=== PATIENT | female | born 1985 | race African-American/Black ===

== ENCOUNTER 2017-03-08 06:27 | Emergency (ER) | payer OTHER ==
[~2017-03-08] VITALS: Ht 165.1 cm; Wt 127.0 kg
[~2017-03-08 06:27] MED LIST: AMLO-145 PO; AMOX1TAB10 PO; CLON-379 PO; HYDR-3671 PO; LINA5TAB PO; LIRA0.6P SQ; LISI20TA11 PO; LISI40TA9 PO; METO-429 PO
[2017-03-08 06:33] VITALS: Ht 165.1 cm; Wt 127.0 kg
[2017-03-08] MEDS ORDERED: TETRACAINE 0.5% 4 ML OPH RIGHT EYE ONE (07:30)
[2017-03-08] MEDS ORDERED: FLUORESCEIN STRIP RIGHT EYE ONE (07:30)
[2017-03-08] MEDS ORDERED: GENT5DRO28 RIGHT EYE (07:37)
--- NOTE | 2017-03-08 07:42 | ERD ---
ER Documentation Chief Complaint Date/Time DATE: 03/08/17 TIME: 07:39 Chief Complaint rt eye redness and itching since yesterday HPI 31-year-old female presents to the emergency department complaining of right eye pain. Patient states she accidentally smeared mascara into her right eye yesterday. Since then, she has been having right eye blurriness and pain. She denies any fevers, chills. She does not wear contact lenses. She denies trauma. ROS All systems reviewed and are negative except as per history of present illness. Medications Home Meds Active Scripts Gentamicin Sulfate* (Gentamicin Sulfate* Ophth) 0.3% - 5 Ml Drops, 1 DROP RIGHT EYE Q4 for 5 Days, EA Prov:BOBBY MURILLO 03/08/17 Amoxicillin/Potassium Clav (Amox-Clav 875-125 mg Tablet) 875-125 mg Tab, 1 TAB PO BID for 10 Days, TAB Prov:REGERICK SANCHEZ 07/27/16 Lisinopril* (Lisinopril*) 20 Mg Tablet, 20 MG PO DAILY for 30 Days, TAB Prov:REGIDOERICK Santana 07/27/16 Amlodipine Besylate* (Amlodipine Besylate*) 5 Mg Tablet, 5 MG PO BID for 30 Days , TAB Prov:REGERICK SANCHEZ 07/27/16 Metoprolol Tartrate* (Lopressor*) 50 Mg Tab, 50 MG PO BID for 30 Days, TAB Prov:REGERIKC SANCHEZ 07/27/16 Linagliptin (TRADJENTA) 5 Mg Tablet, 5 MG PO DAILY for 30 Days, TAB Prov:REGERICK SANCHEZ 07/27/16 Hydralazine Hcl* (Hydralazine Hcl*) 25 Mg Tab, 25 MG PO TID for 30 Days, TAB Prov:REGERICK SANCHEZ 07/27/16 Clonidine Hcl* (Clonidine Hcl*) 0.1 Mg Tab, 0.1 MG PO BID for 30 Days, TAB Prov:ERICK PALACIOS 07/27/16 Reported Medications Lisinopril* (Lisinopril*) 40 Mg Tablet, 40 MG PO DAILY, #30 TAB 07/24/16 Liraglutide (Victoza 2-Sukhwinder) 0.6 Mg/0.1 Ml Pen.injctr, 1.2 MG SQ DAILY, SYR 07/22/16 Allergies Allergies: Coded Allergies: bupropion (Verified Allergy, Severe, 07/22/16) PMhx/Soc History of Surgery: Yes (adinoids and tonsils) Anesthesia Reaction: No Hx Neurological Disorder: No Hx Respiratory Disorders: No Hx Psychiatric Problems: No Hx Miscellaneous Medical Probl: Yes (Dx:POD 2 for I&D of Odontogenic L neck abcess, s/p extubation) Hx Alcohol Use: No Hx Substance Use: No Hx Tobacco Use: No FmHx Noncontributory for chief complaint Physical Exam Vitals Vital Signs Date Time Temp Pulse Resp B/P Pulse Ox O2 Delivery O2 Flow Rate FiO2 03/08/17 06:33 98.4 100 18 149/85 98 Physical Exam General: Well-developed well-nourished in no distress HEENT: No evidence of trauma. No facial inflammation or infection. EYE: Left eye is normal with normal visual acuity, right eye is slightly blurry when counting fingers. Extraocular movements are intact, significant conjunctival inflammation is noted. Fluorescein examination demonstrates evidence of significant uptake about the cornea. There is no ulceration. There is no foreign body on slit lamp exam. Anterior chamber is quiet and deep. Extraocular movements are intact without limitation there is no diplopia. Results 24 hrs Current Medications Medications (Trade) Dose Ordered Sig/Man Route PRN Reason Start Time Stop Time Status Last Admin Dose Admin Tetracaine HCl (Tetracaine 0.5% Steri-Unit Estelita) 1 drop ONCE ONCE RIGHT EYE 03/08/17 07:30 03/08/17 07:31 DC Fluorescein Sodium (Bixvd-T-Qnmvi) 1 strip ONCE ONCE RIGHT EYE 03/08/17 07:30 03/08/17 07:31 DC Gentamicin Sulfate (Gentamicin 0.3% Oph Oint) 1 applic ONCE ONCE RIGHT EYE 03/08/17 08:00 03/08/17 08:01 Procedures/MDM Patient was taken to a room, seen and examined. After tetracaine instilled into the eye, she had complete resolution of her discomfort. Fluorescein examination was then completed. The patient's eye was patched with gentamicin eyedrops. Medical decision makin-year-old diabetic presents to the emergency department with right eye pain. Patient demonstrates no evidence of significant vision threatening concerns, but has a significant corneal injury likely from the mascara. At this time, I have treated antibiotics and I suspect that she will be healing. I have informed her of the need for close 24 hour follow-up either here in the emergency department or with her eye doctor to check to make sure this is healing. Departure Diagnosis: Primary Impression: Eye injury Condition: Stable Patient Instructions: Corneal Injury, Eye Patch Referrals: YOLANDA NAVARRO (PCP) Additional Instructions: Please see your eye doctor or return here for a recheck in the next 24 hours. Return sooner for any increased pain or vision changes BOBBY MURILLO Mar 08, 2017 07:42
[2017-03-08] MEDS ORDERED: GENTAMICIN 0.3% 3.5 GM OPH OINT RIGHT EYE ONE (08:00)
== END 2017-03-08 08:18 | disposition home or self-care (01) ==
LOC: FTE 06:27
DX: S05.91XA Unspecified injury of right eye and orbit, initial encounter (principal); I10 Essential (primary) hypertension; E11.9 Type 2 diabetes mellitus without complications; X58.XXXA Exposure to other specified factors, initial encounter; Y92.9 Unspecified place or not applicable; Z79.84 Long term (current) use of oral hypoglycemic drugs
CPT/HCPCS: Z7502; Z7610; 99283

== ENCOUNTER 2017-09-30 14:29 | Emergency (ER) | payer OTHER ==
[~2017-09-30] VITALS: Wt 125.0 kg
[~2017-09-30 14:29] MED LIST changes: +GENT5DRO28 RIGHT EYE
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
--- NOTE | 2017-09-30 16:47 | RADRPT ---
PROCEDURE: XR Chest. CLINICAL INDICATION: chest pain TECHNIQUE: Single frontal view of the chest was obtained COMPARISON: 07/24/16 FINDINGS: The heart and mediastinum are within normal limits. The lungs are clear. There is no pleural effusion or pneumothorax. RPTAT: AA IMPRESSION: No acute disease. .Jame Byrens MD, MD Date Time Electronically viewed and signed by .Jame Byrnes MD, on 09/30/2017 16:47 .S/
--- NOTE | 2017-09-30 16:59 | RADRPT ---
PROCEDURE: XR Lumbar Spine. CLINICAL INDICATION: back pain TECHNIQUE: AP, lateral and cone-down lateral view of the lumbar spine were obtained. COMPARISON: No prior studies are available for comparison. FINDINGS: There is mild vertebral spondylosis. There is normal vertebral mineralization and alignment. No acute fracture. No subluxation of vertebral bodies. The disc spaces are normal in appearance. The posterior elements are unremarkable. The soft tissues appear normal. RPTAT: AA IMPRESSION: Mild vertebral spondylosis. .Jame Byrnes MD, Date Time Electronically viewed and signed by .Jame Byrnes MD, on 09/30/2017 16:58 .S/
--- NOTE | 2017-09-30 16:59 | RADRPT ---
PROCEDURE: XR Lumbar Spine. CLINICAL INDICATION: back pain TECHNIQUE: AP, lateral and cone-down lateral view of the lumbar spine were obtained. COMPARISON: No prior studies are available for comparison. FINDINGS: There is mild vertebral spondylosis. There is normal vertebral mineralization and alignment. No acute fracture. No subluxation of vertebral bodies. The disc spaces are normal in appearance. The posterior elements are unremarkable. The soft tissues appear normal. RPTAT: AA IMPRESSION: Mild vertebral spondylosis. .Jame Byrnes MD, Date Time Electronically viewed and signed by .aJme Byrnes MD, on 09/30/2017 16:58 .S/
--- NOTE | 2017-09-30 17:00 | RADRPT ---
PROCEDURE: XR sacrum and coccyx . CLINICAL INDICATION: Pain TECHNIQUE: AP and lateral views of the sacrum and coccyx were performed. COMPARISON: No prior studies are available for comparison. FINDINGS: There is normal sacral and coccygeal mineralization and alignment. No fracture or subluxation is see n. The sacroiliac joints appear normal. The soft tissues are unremarkable. RPTAT: AA IMPRESSION: Unremarkable x-ray examination of the sacrum and coccyx. .Jame Byrnes MD, Date Time Electronically viewed and signed by .Jame Byrnes MD, on 09/30/2017 17:00 .S/
[2017-09-30] MEDS ORDERED: NAPR-260 PO (17:36)
[2017-09-30 18:02] VITALS: RESP 18
== END 2017-09-30 18:03 | disposition home or self-care (01) ==
LOC: FTE 14:29
DX: M54.5 Low back pain (principal); R07.89 Other chest pain; I10 Essential (primary) hypertension; E11.9 Type 2 diabetes mellitus without complications; Z79.84 Long term (current) use of oral hypoglycemic drugs
CPT/HCPCS: 71010; 72100; 72220; Z7502